=== PATIENT | female | born 1985 | race Asian ===

== ENCOUNTER 2019-07-30 20:14 | Emergency (ER) | payer OTHER ==
[~2019-07-30] VITALS: Ht 165.1 cm; Wt 61.2 kg
[2019-07-30 20:15] VITALS: BP 148/93
--- NOTE | 2019-07-30 20:15 | NUR ---
ED Nurse Note: Patient brought in by RA from home due to behavioral complaint. Patient states "ann been feeling a lot of anxiety lately". Pt has history of aniety. Alert and oriented, verbally reponsive, cooperative. No SOB. breathing even and unlabored. VSS.
--- NOTE | 2019-07-30 20:58 | Emergency Room Report ---
History of Present Illness General Chief Complaint: Behavioral Complaint Source: Patient Present Illness HPI Patient presents with anxiety shortness of breath chest pain and epigastric pain. She is been undergoing stress recently. She believes somebody's persecuting her. She has thoughts that the FBI and government is involved with that. She denies suicidal or homicidal ideation. She does not feel safe at home and is already spoke with police. Would lead to the episode tonight is that her phone would not connect to the [employer] and she could not dial 911. She went out asking for help and was transported by EMS. Some bumps around the rectal area with discomfort. Allergies: Coded Allergies: No Known Allergies (Unverified , 07/30/19) Patient History Past Medical History: see triage record Social History: Reports: alcohol use; Denies: smoking, drug use Social History Narrative Adult [employer] Last Menstrual Period: 07/21/19 Now: No Reviewed Nursing Documentation: PMH: Agreed; PSxH: Agreed Nursing Documentation-PMH Past Medical History: No History, Except For Physical Exam Vital Signs Date Time Temp Pulse Resp B/P (MAP) Pulse Ox O2 Delivery O2 Flow Rate FiO2 07/30/19 20:05 98.2 86 18 148/93 (111) 100 Room Air Medical Decision Making Diagnostic Impression: Primary Impression: Anxiety Additional Impression: Amphetamine abuse Laboratory Tests Test 07/30/19 21:09 White Blood Count 6.1 K/UL (4.8-10.8) Red Blood Count 4.50 M/UL (4.20-5.40) Hemoglobin 13.3 G/DL (12.0-16.0) Hematocrit 38.4 % (37.0-47.0) Mean Corpuscular Volume 85 FL (80-99) Mean Corpuscular Hemoglobin 29.5 PG (27.0-31.0) Mean Corpuscular Hemoglobin Concent 34.6 G/DL (32.0-36.0) Red Cell Distribution Width 10.6 % (11.6-14.8) L Platelet Count 272 K/UL (150-450) Mean Platelet Volume 5.6 FL (6.5-10.1) L Neutrophils (%) (Auto) 73.3 % (45.0-75.0) Lymphocytes (%) (Auto) 18.0 % (20.0-45.0) L Monocytes (%) (Auto) 7.6 % (1.0-10.0) Eosinophils (%) (Auto) 0.0 % (0.0-3.0) Basophils (%) (Auto) 1.1 % (0.0-2.0) Urine Color Pale yellow Urine Appearance Clear Urine pH 5 (4.5-8.0) Urine Specific [place] 1.015 (1.005-1.035) Urine Protein 1+ (NEGATIVE) H Urine Glucose (UA) Negative (NEGATIVE) Urine Ketones 4+ (NEGATIVE) H Urine Blood 2+ (NEGATIVE) H Urine Nitrite Negative (NEGATIVE) Urine Bilirubin Negative (NEGATIVE) Urine Urobilinogen Normal MG/DL (0.0-1.0) Urine Leukocyte Esterase Negative (NEGATIVE) Urine RBC 0-2 /HPF (0 - 2) Urine WBC 0 /HPF (0 - 2) Urine Squamous Epithelial Cells Occasional /LPF Urine Amorphous Sediment Few /LPF (NONE) H Urine Bacteria Occasional /HPF (NONE) Urine HCG, Qualitative Negative (NEGATIVE) Sodium Level 139 MMOL/L (136-145) Potassium Level 3.1 MMOL/L (3.5-5.1) L Chloride Level 101 MMOL/L (98-107) Carbon Dioxide Level 26 MMOL/L (21-32) Anion Gap 12 mmol/L (5-15) Blood Urea Nitrogen 9 mg/dL (7-18) Creatinine 0.7 MG/DL (0.55-1.30) Estimate Glomerular Filtration Rate > 60 mL/min (>60) Glucose Level 106 MG/DL (74-106) Calcium Level 8.9 MG/DL (8.5-10.1) Total Bilirubin 1.0 MG/DL (0.2-1.0) Aspartate Amino Transferase (AST) 22 U/L (15-37) Alanine Aminotransferase (ALT) 18 U/L (12-78) Alkaline Phosphatase 57 U/L (46-116) Total Creatine Kinase 165 U/L (26-308) Total Protein 7.8 G/DL (6.4-8.2) Albumin 4.0 G/DL (3.4-5.0) Globulin 3.8 g/dL Albumin/Globulin Ratio 1.1 (1.0-2.7) Salicylates Level < 0.2 ug/mL (2.8-20) L Urine Opiates Screen Negative (NEGATIVE) Acetaminophen Level < 2 MCG/ML (10-30) L Urine Barbiturates Screen Negative (NEGATIVE) Phencyclidine (PCP) Screen Negative (NEGATIVE) Urine Amphetamines Screen Positive (NEGATIVE) H Urine Benzodiazepines Screen Positive (NEGATIVE) H Urine Cocaine Screen Negative (NEGATIVE) Urine Marijuana (THC) Screen Negative (NEGATIVE) Serum Alcohol < 3 mg/dL EKG Diagnostic Results Rate: normal Rhythm: NSR ST Segments: no acute changes Rhythm Strip Diag. Results EP Interpretation: yes Rhythm: NSR, no PVC's, no ectopy Status: improved Disposition: HOME, SELF-CARE Condition: Improved Alton Castañeda MD Jul 30, 2019 20:58
[2019-07-30] MEDS ORDERED: LORazepam Inj 2mg/ml 1ml IV ONE (21:00)
[2019-07-30 21:28] LABS: APPEARANCE,URINE CLEAR; BILIRUBIN, URINE NEGATIVE (NEGATIVE); COLOR,URINE PALE YELLOW; GLUCOSE, URINE (UA) NEGATIVE (NEGATIVE); KETONES,URINE 4+ (NEGATIVE); LEUKOCYTE ESTERASE ,URINE NEGATIVE (NEGATIVE); NITRITE,URINE NEGATIVE (NEGATIVE); PH,URINE 5 (4.5-8.0); PROTEIN,URINE 1+ (NEGATIVE); UROBILINOGEN,URINE NORMAL MG/DL (0.0-1.0)
[2019-07-30 21:29] LABS: BASOPHILS % (AUTO) 1.1 % (0.0-2.0); HEMATOCRIT 38.4 % (37.0-47.0); HEMOGLOBIN 13.3 G/DL (12.0-16.0); MEAN CORPUSCULAR VOLUME 85 FL (80-99); MONOCYTES % (AUTO) 7.6 % (1.0-10.0); NEUTROPHILS % (AUTO) 73.3 % (45.0-75.0); PLATELET COUNT 272 K/UL (150-450); RED CELL DISTRIBUTION WIDTH 10.6 % (11.6-14.8); WHITE BLOOD COUNT 6.1 K/UL (4.8-10.8)
[2019-07-30 21:40] LABS: ANION GAP 12 mmol/L (5-15); BLOOD UREA NITROGEN 9 mg/dL (7-18); CALCIUM 8.9 MG/DL (8.5-10.1); CARBON DIOXIDE 26 MMOL/L (21-32); CHLORIDE 101 MMOL/L (98-107); CREATININE 0.7 MG/DL (0.55-1.30); POTASSIUM 3.1 MMOL/L (3.5-5.1); SODIUM 139 MMOL/L (136-145)
[2019-07-30 21:54] LABS: ALANINE AMINOTRANSFERASE 18 U/L (12-78); ALBUMIN/GLOBULIN RATIO 1.1 (1.0-2.7); ALKALINE PHOSPHATASE 57 U/L (46-116); ASPARTATE AMINO TRANSFERASE 22 U/L (15-37); CREATINE KINASE 165 U/L (26-308)
[2019-07-30 23:10] VITALS: BP 148/93
--- NOTE | 2019-07-30 23:10 | NUR ---
ED Nurse Note: Pt cleared by ERMD for discharge. DC instructions/prescription was given and explained to pt and verbalized understanding of teachings. All medical deviecs such as ID band removed. Pt is AAO x4, ambulatory and left with all personal belongings.
== END 2019-07-30 23:10 | disposition home or self-care (01) ==
LOC: EDBD 20:14 → EMR 20:44
DX: F41.9 Anxiety disorder, unspecified (principal); F15.10 Other stimulant abuse, uncomplicated
CPT/HCPCS: 36415; 80053; 80307; 81003; 81025; 82550; 85025; 93005; 96361; 96374; 96375; G0480; G0481; S0028; Z7502; 99284; J7030; J8499

== ENCOUNTER 2020-11-17 14:31 | Emergency (ER) | payer OTHER ==
[~2020-11-17] VITALS: Ht 162.6 cm; Wt 54.4 kg
[2020-11-17 14:51] VITALS: BP 136/90
--- NOTE | 2020-11-17 14:59 | Emergency Room Report ---
History of Present Illness General Chief Complaint: Behavioral Complaint Source: Patient Present Illness HPI Disclaimer: Please note that this report is being documented using DRAGON technology. This can lead to erroneous entry secondary to incorrect interpretation by the dictating instrument. HPI: 35-year-old female presents for anxiety, palpitations in setting of drug use. Patient states she was drinking alcohol at a bar earlier today and then tried to buy cocaine. She believes she was given methamphetamine instead of cocaine and snorted 3 lines of it. She feels anxious, tense in her muscles and significant anxiety. Denies injecting any drugs. Denies SI/HI. She states this is recreational. States she has done cocaine in the past but this does not feel like cocaine. [employer] have arrived and taken the patient statement. Denies taking any other medication or any medical history. PMH: Drug abuse PSH: Reviewed Allergies: Denied Social Hx: Alcohol use, drug use Allergies: Coded Allergies: No Known Allergies (Unverified , 07/30/19) COVID-19 Screening Contact w/high risk pt: No Experienced COVID-19 symptoms?: No COVID-19 Testing performed [employer]: No Patient History Now: No Nursing Documentation-PMH Past Medical History: No History, Except For Review of Systems All Other Systems: negative except mentioned in HPI Physical Exam Vital Signs Date Time Temp Pulse Resp B/P (MAP) Pulse Ox O2 Delivery O2 Flow Rate FiO2 11/17/20 14:37 98.4 130 18 149/95 (113) 98 Room Air General: Awake and alert, anxious appearing HEENT: NC/AT. EOMI. Cardiovascular: Tachycardic Resp: Normal work of breathing. No cough, wheezing or crackles appreciated Skin: Intact. No abrasions, laceration or rash over the exposed skin MSK: Normal tone and bulk. Moving all extremities. No obvious deformity. Neuro: Awake and alert. Mentating appropriately. Medical Decision Making Diagnostic Impression: Primary Impression: Substance abuse ER Course Is a 35-year-old female presenting for anxiety and agitation after using drugs. Toxin positive for amphetamines and negative for cocaine. Other labs are within normal limits. The patient feels better after receiving Ativan. Stable for outpatient follow-up. Instructed to return with new or worsening symptoms. Counseled on drug abuse. She understands and agrees with this treatment plan. Laboratory Tests Test 11/17/20 14:30 11/17/20 15:15 Urine HCG, Qualitative Negative (NEGATIVE) Urine Opiates Screen Negative (NEGATIVE) Urine Barbiturates Screen Negative (NEGATIVE) Phencyclidine (PCP) Screen Negative (NEGATIVE) Urine Amphetamines Screen Positive (NEGATIVE) H Urine Benzodiazepines Screen Negative (NEGATIVE) Urine Cocaine Screen Negative (NEGATIVE) Urine Marijuana (THC) Screen Negative (NEGATIVE) White Blood Count 7.6 K/UL (4.8-10.8) Red Blood Count 4.62 M/UL (4.20-5.40) Hemoglobin 13.2 G/DL (12.0-16.0) Hematocrit 41.4 % (37.0-47.0) Mean Corpuscular Volume 90 FL (80-99) Mean Corpuscular Hemoglobin 28.5 PG (27.0-31.0) Mean Corpuscular Hemoglobin Concent 31.9 G/DL (32.0-36.0) L Red Cell Distribution Width 12.8 % (11.6-14.8) Platelet Count 265 K/UL (150-450) Mean Platelet Volume 6.1 FL (6.5-10.1) L Neutrophils (%) (Auto) 78.5 % (45.0-75.0) H Lymphocytes (%) (Auto) 14.0 % (20.0-45.0) L Monocytes (%) (Auto) 6.8 % (1.0-10.0) Eosinophils (%) (Auto) 0.0 % (0.0-3.0) Basophils (%) (Auto) 0.6 % (0.0-2.0) Sodium Level 145 MMOL/L (136-145) Potassium Level 3.7 MMOL/L (3.5-5.1) Chloride Level 107 MMOL/L (98-107) Carbon Dioxide Level 25 MMOL/L (21-32) Anion Gap 13 mmol/L (5-15) Blood Urea Nitrogen 12 mg/dL (7-18) Creatinine 0.9 MG/DL (0.55-1.30) Estimated Glomerular Filtration Rate > 60 mL/min (>60) Glucose Level 100 MG/DL (74-106) Calcium Level 9.4 MG/DL (8.5-10.1) Total Bilirubin 0.7 MG/DL (0.2-1.0) Aspartate Amino Transferase (AST) 19 U/L (15-37) Alanine Aminotransferase (ALT) 16 U/L (12-78) Alkaline Phosphatase 69 U/L (46-116) Troponin I 0.000 ng/mL (0.000-0.056) Total Protein 8.7 G/DL (6.4-8.2) H Albumin 4.6 G/DL (3.4-5.0) Globulin 4.1 g/dL Albumin/Globulin Ratio 1.1 (1.0-2.7) Salicylates Level 0.3 ug/mL (2.8-20) L Acetaminophen Level < 2 MCG/ML (10-30) L Serum Alcohol < 3 mg/dL EKG Diagnostic Results Troponin ordered: Yes When was troponin ordered?: Nov 17, 2020 EKG Time: 15:27 Rate: tachycardiac Rhythm: NSR ST Segments: no acute changes Rhythm Strip Diag. Results Rhythm Strip Time: 15:27 EP Interpretation: yes Rate: 110s Rhythm: NSR, no PVC's, no ectopy Last Vital Signs Date Time Temp Pulse Resp B/P (MAP) Pulse Ox O2 Delivery O2 Flow Rate FiO2 11/17/20 14:51 126 20 136/90 98 Room Air 11/17/20 14:37 98.4 Disposition: HOME, SELF-CARE Condition: Stable Corky Moreno MD Nov 17, 2020 14:59
[2020-11-17] MEDS ORDERED: LORazepam Inj 2mg/ml 1ml IV ONE (15:00)
[2020-11-17 15:31] LABS: BASOPHILS % (AUTO) 0.6 % (0.0-2.0); HEMATOCRIT 41.4 % (37.0-47.0); HEMOGLOBIN 13.2 G/DL (12.0-16.0); MEAN CORPUSCULAR VOLUME 90 FL (80-99); MONOCYTES % (AUTO) 6.8 % (1.0-10.0); NEUTROPHILS % (AUTO) 78.5 % (45.0-75.0); PLATELET COUNT 265 K/UL (150-450); RED BLOOD COUNT 4.62 M/UL (4.20-5.40); RED CELL DISTRIBUTION WIDTH 12.8 % (11.6-14.8); WHITE BLOOD COUNT 7.6 K/UL (4.8-10.8)
[2020-11-17 15:41] LABS: ANION GAP 13 mmol/L (5-15); BLOOD UREA NITROGEN 12 mg/dL (7-18); CALCIUM 9.4 MG/DL (8.5-10.1); CARBON DIOXIDE 25 MMOL/L (21-32); CHLORIDE 107 MMOL/L (98-107); CREATININE 0.9 MG/DL (0.55-1.30); POTASSIUM 3.7 MMOL/L (3.5-5.1); SODIUM 145 MMOL/L (136-145)
[2020-11-17 15:46] LABS: ALANINE AMINOTRANSFERASE 16 U/L (12-78); ALBUMIN 4.6 G/DL (3.4-5.0); ALBUMIN/GLOBULIN RATIO 1.1 (1.0-2.7); ALKALINE PHOSPHATASE 69 U/L (46-116); ASPARTATE AMINO TRANSFERASE 19 U/L (15-37); BILIRUBIN,TOTAL 0.7 MG/DL (0.2-1.0)
--- NOTE | 2020-11-17 16:34 | NUR ---
ED Nurse Note: 1445: pt arrived. states she meant to buy cocaine but thinks she accidentally got crystal meth. pt states she snorted 3 lines of cyrstal meth after drinking about 5 beers at a bar around 0430 this morning. pt alert & oriented x4 but rambling with flight of ideas. VANDA arrived to interview pt. pt states she knows whoever gave her the drugs. pt denies SI/HI. pt states she has external resources. pt states she thinks there is a "conspiracy against her for the past 8 years, but only when she does crystal meth." 1645: pt cleared for discharge from MD. pt verbalizes understanding of instructions and followup care.
[2020-11-17 17:23] VITALS: BP 122/75
--- NOTE | 2020-11-17 17:24 | NUR ---
ER DISCHARGE NOTE: Patient is cleared to be discharged per ERMD, pt is aox4, on room air, with stable vital signs. pt was given dc instructions, pt was able to verbalize understanding, pt id band and iv site removed without complications. pt is able to ambulate with steady gait. pt took all belongings.
== END 2020-11-17 19:00 | disposition home or self-care (01) ==
LOC: EDBD 14:31 → EMR 16:02
DX: F19.10 Other psychoactive substance abuse, uncomplicated (principal); R41.82 Altered mental status, unspecified; F41.9 Anxiety disorder, unspecified; R00.0 Tachycardia, unspecified
CPT/HCPCS: 36415; 80053; 80307; 81025; 84484; 85025; 93005; 96361; 96374; 96375; G0480; G0481; J2405; Z7502; 99284